=== PATIENT | male | born 1975 | race Caucasian/White ===

== ENCOUNTER 2018-02-09 15:59 | Emergency (ER) | payer MEDICAID, OTHER ==
[~2018-02-09] VITALS: Ht 172.7 cm; Wt 81.6 kg
--- OUTSIDE RECORDS SUMMARY | 2018-02-09 16:05 | XMS REPORT | Continuity of Care Document ---
Demographics x Preferred Language Unknown Marital Status Unknown Yazidism Affiliation Unknown Race Unknown Ethnic Group Unknown Author Author [facility] Organization [facility] Address Unknown Phone Unavailable Allergies Active Description Code Type Severity Reaction Onset Reported/Identified Relationship to Patient Clinical Status Yes Cephalexin 2716 Drug Allergy N/ A N/A Medications There is no data. Problems There is no data. Procedures There is no data. Results Test Result Range CBC WITH DIFF - 01/14/14 00:00 BASO% 0.6 % 0-2 EOS% 2.6 % 0-7.0 HCT 50.9 % 41.9-52.0 HGB 17.6 G/DL 13.0-18.0 LYMPH% 28.1 % 20-40 MCH 29.8 PG 27-31 MCHC 34.6 G/DL 33-37 MCV 86.1 FL 80-94 MONO% 8.0 % 0-10.0 MPV 10.1 FL 7.3-10.4 NEUTRO% 60.7 % 40-70 PLT 208 10^3u 130-400 RBC 5.9 10^6u 4.7-6.1 RDW 15.4 % 11.5-15.5 WBC 10.1 10^3u 4.8-10.8 NEUTRO# 6.1 10^3u 1.5-7.5 LYMPH# 2.8 10^3u 0.9-4.0 MONO# 0.8 10^3u 0-0.8 EOS# 0.3 10^3u 0-0.6 BASO# 0.1 10^3u 0-0.1 CMP - 01/14/14 00:00 ALB 3.8 G/DL 3.5-5 ALP 102 IU/L 50-136 ALT 45 IU/L 12-65 AST 17 IU/L 10-42 BCR 6.4 10-20 BUN 8 MG/DL 7-18 CA 8.9 MG/DL 8.4-10.2 CL 105 MEQ/L 98-107 CO2 25.0 MEQ/L 22-28 CREA 1.25 MG/DL 0.6-1.3 EGFR 65 eGFR >=60 GLU 145 MG/DL 70-105 K 3.7 MEQ/L 3.5-5.1 NA 137 MEQ/L 134-145 OSMSC 274.7 MOSML 280-300 TBIL 0.3 MG/DL 0.1-1.0 TP 7.3 G/DL 6.0-8.3 Albumin/Globulin Ratio 1.1 0-8 Anion Gap 7.0 8-16 ACETAMINOPHEN - 01/14/14 00:00 ACETA 0.0 UG/ML 10.0-30.0 SALICYLATES - 01/14/14 00:00 SALIC 3.5 MG/DL 2.0-20.0 ETOH - 01/14/14 00:00 ETOH < 3 MG/DL 0-5 DRUG SCREEN IN HOUSE - 01/14/14 00:00 MBAR N Negative MBENZO N Negative MCOCN N Negative MMAMP N Negative MMTD N Negative MOPIAT N Negative MPCP N Negative MTCA N Negative MTHC N Negative AMPHETAMINE N Negative TSH - 02/25/14 00:00 TSH 1.44 UIUML 0.36-3.74 CMP - 02/25/14 00:00 ALB 4.2 G/DL 3.5-5 ALP 103 IU/L 50-136 ALT 33 IU/L 12-65 AST 17 IU/L 10-42 BCR 6.8 10-20 BUN 9 MG/DL 7-18 CA 8.9 MG/DL 8.4-10.2 CL 105 MEQ/L 98-107 CO2 26.9 MEQ/L 22-28 CREA 1.32 MG/DL 0.6-1.3 EGFR 61 eGFR >=60 GLU 101 MG/DL 70-105 K 3.7 MEQ/L 3.5-5.1 NA 142 MEQ/L 134-145 OSMSC 281.9 MOSML 280-300 TBIL 0.7 MG/DL 0.1-1.0 TP 7.8 G/DL 6.0-8.3 Albumin/Globulin Ratio 1.2 0-8 Anion Gap 10.1 8-16 ETOH - 02/25/14 00:00 ETOH < 3 MG/DL 0-5 CBC - 02/25/14 00:00 HCT 54.7 % 41.9-52.0 HGB 18.5 G/DL 13.0-18.0 MCH 30.0 PG 27-31 MCHC 33.8 G/DL 33-37 MCV 88.7 FL 80-94 MPV 10.3 FL 7.3-10.4 PLT 195 10^3u 130-400 RBC 6.2 10^6u 4.7-6.1 RDW 14.9 % 11.5-15.5 WBC 7.7 10^3u 4.8-10.8 DRUG SCREEN IN HOUSE - 02/25/14 00:00 MBAR N Negative MBENZO N Negative MCOCN N Negative MMAMP N Negative MMTD N Negative MOPIAT N Negative MPCP N Negative MTCA N Negative MTHC N Negative AMPHETAMINE N Negative Encounters ACCT No. Visit Date/Time Discharge Status Pt. Type Provider Facility Loc./Unit Complaint [id number] 01/14/2014 11:27:00 01/14/2014 15:50:00 DIS WALDO Reyes [facility] EMR [id number] 07/01/2013 00:00:00 Document Registration [id number] 07/01/2013 00:00:00 Document Registration
[2018-02-09] MEDS ORDERED: LACTATED RINGERS 1,000 ML IV ONE (17:01)
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
[2018-02-09 18:48] LABS: BASOPHILS % (AUTO) 0 % (0-10); EOSINOPHILS # (AUTO) 0.3 10^3/uL (0.0-0.3); EOSINOPHILS % (AUTO) 3 % (0-10); HEMATOCRIT 51 % (40-54); LYMPHOCYTES # (AUTO) 2.6 X 10^3 (1.0-4.0); LYMPHOCYTES % (AUTO) 23 % (12-44); MEAN CORPUSCULAR HEMOGLOBIN 33 PG (25-34); MEAN CORPUSCULAR HGB CONC 36 G/DL (32-36); MEAN CORPUSCULAR VOLUME 92 FL (80-99); MEAN PLATELET VOLUME 10.2 FL (7.4-10.4); MONOCYTES # (AUTO) 1.1 X 10^3 (0.0-1.0); MONOCYTES % (AUTO) 10 % (0-12); NEUTROPHILS # (AUTO) 7.2 X 10^3 (1.8-7.8); NEUTROPHILS % (AUTO) 64 % (42-75); PLATELET COUNT 205 10^3/uL (130-400); RED BLOOD COUNT 5.52 10^6/uL (4.35-5.85); RED CELL DISTRIBUTION WIDTH 14.8 % (10.0-14.5); WHITE BLOOD COUNT 11.3 10^3/uL (4.3-11.0)
[2018-02-09 18:58] VITALS: BP_SYST 130; BP_SYST 132; BP_DIAS 95; BP_DIAS 96
[2018-02-09 19:08] LABS: ALANINE AMINOTRANSFERASE 31 U/L (0-55); ALBUMIN 4.5 GM/DL (3.2-4.5); ALKALINE PHOSPHATASE 62 U/L (40-136); BILIRUBIN,TOTAL 0.8 MG/DL (0.1-1.0); BUN/CREATININE RATIO 5; CALCIUM 10.1 MG/DL (8.5-10.1); CARBON DIOXIDE 25 MMOL/L (21-32); CHLORIDE 104 MMOL/L (98-107); CREATININE SERUM 1.07 MG/DL (0.60-1.30); GFR ESTIMATED > 60; GLUCOSE 91 MG/DL (70-105); MAGNESIUM 2.5 MG/DL (1.8-2.4); POTASSIUM 3.6 MMOL/L (3.6-5.0); SODIUM 142 MMOL/L (135-145); TOTAL PROTEIN 7.4 GM/DL (6.4-8.2)
[2018-02-09 20:20] LABS: BILIRUBIN,URINE NEGATIVE (NEGATIVE); CLARITY,URINE CLEAR; COLOR,URINE YELLOW; GLUCOSE, URINE (UA) NEGATIVE (NEGATIVE); KETONES,URINE 2+ (NEGATIVE); LEUKOCYTE ESTERASE ,URINE NEGATIVE (NEGATIVE); NITRITE,URINE NEGATIVE (NEGATIVE); PH,URINE 7 (5-9); PROTEIN,URINE NEGATIVE (NEGATIVE); UROBILINOGEN,URINE NORMAL (NORMAL)
[2018-02-09 20:30] LABS: WBC,URINE 0-2 /HPF
[2018-02-09 20:34] LABS: AMPHETAMINE SCREEN, URINE NEGATIVE (NEGATIVE); BARBITURATE SCREEN URINE NEGATIVE (NEGATIVE); BENZODIAZEPINES SCREEN URINE NEGATIVE (NEGATIVE); CANNABINOID SCREEN, URINE POSITIVE (NEGATIVE); COCAINE SCREEN URINE NEGATIVE (NEGATIVE); METHADONE STAT NEGATIVE (NEGATIVE); METHAMPHETAMINE SCREEN URINE S NEGATIVE (NEGATIVE); OPIATE SCREEN URINE NEGATIVE (NEGATIVE); OXYCODONE STAT NEGATIVE (NEGATIVE); PROPOXYPHENE STAT NEGATIVE (NEGATIVE); TRICYCLIC ANTIDEPRESSANTS SCRE NEGATIVE (NEGATIVE)
[2018-02-09 21:01] VITALS: BP 129/91
== END 2018-02-09 20:58 | disposition home or self-care (01) ==
LOC: ER 16:02
DX: R42 Dizziness and giddiness (principal); E86.9 Volume depletion, unspecified; F17.210 Nicotine dependence, cigarettes, uncomplicated; Z88.1 Allergy status to other antibiotic agents
CPT/HCPCS: 36415; 80053; 80306; 80320; 81000; 83735; 84484; 85025; 93005; 93041; 96360